=== PATIENT | male | born 2000 | race Two or more races ===

== ENCOUNTER 2024-04-23 12:47 | Emergency (ER) | payer MEDICAID, SELFPAY ==
[2024-04-23 12:48] VITALS: BMI 26.6
[2024-04-23 13:08] VITALS: BP 155/84; PULSE 67; RESP 18; TEMP 37.1; O2SAT 96
--- NOTE | 2024-04-23 13:37 | EDNOTE_ITS ---
<Statement entered by Sandra Broderick MD - 05/04/24 19:23> As co-signing physician, I was present and available for consult prn. I concur with the plan and care as documented by the midlevel provider. Upper Respiratory Inf. RME/HPI General Chief Complaint: Flu Like Symptoms Stated Complaint: COUGH/DIFF BREATHING/SORE THROAT x 2 WEEKS Time Seen by Provider: 04/23/24 13:12 Arrival date/time: 04/23/24 12:47 This is a 23-year-old male that comes in with complaints of cough, trouble br eathing, sore throat for the last 2 weeks. Patient denies any fever or chills. Patient states that he has been coughing a lot and sometimes it is hard to catch his breath. Patient denies any sick contacts at home. Patient denies any past medical history. Related Data Previous Rx's ?Medication ?Instructions ?Recorded oxycodone-acetaminophen 5 mg-325 1 tab PO Q6H PRN Pain Scale 04/10/22 mg tablet 4-10(Mod-Sev #10 tabs oxycodone-acetaminophen 5 mg-325 1 tab PO Q8H PRN pain #10 tabs 04/10/22 mg tablet (Percocet) ibuprofen 800 mg tablet 800 mg PO Q6H PRN pain #20 t abs 04/23/24 promethazine-DM 6.25 mg-15 mg/5 mL 5 ml PO Q6H PRN cou gh #120 mL 04/23/24 oral syrup Allergies Allergy/AdvReac Type Severity Reaction Status Date / Time No Known Allergies Allergy Verified 04/23/24 12:49 Review of Systems Review of Systems Systems Reviewed: All systems reviewed, normal except as documented Past Medical History Past Medical History Comments PMH COMMENT: Social History: Nonsmoker. Nondrinker. No substance use. No PMHx. No medications. No surgeries. ED Exam General General appearance: Present alert and in no apparent distress Head Head exam: Present atraumatic Eye Eye exam: Present normal appearance, PERRL and EOMI ENT ENT exam: Present normal exam, normal oropharynx and mucous membranes moist Neck Neck exam: Present normal inspection, full ROM and trachea midline Chest Chest inspection: Present normal inspection and symmetric chest wall rise Respiratory Respiratory exam: Present normal lung sounds bilaterally Cardiovascular Cardiovascular exam: Present regular rate, normal rhythm and normal heart sounds Abdominal Exam Abdominal exam: Present soft Extremities Exam Extremities exam: Present normal inspection and full ROM Back Exam Back exam: Present normal inspection and full ROM Neurological Exam Neurological exam: Present alert, oriented X3 and CN II-XII intact Psychiatric Psychiatric exam: Present normal affect and normal mood Skin Skin exam: Present warm, dry, intact and normal color Course Quality Measures none Orders Category Date Time Status Dexamethasone Inj [Decadron Inj] Med 04/23/24 13:37 Discontinued 10 mg PO X1 ONE Ibuprofen Tab [Motrin Tab] Med 04/23/24 13:37 Discontinued 800 mg PO X1 ONE Promethazine/Dextromethorph [Phenergan Dm Syrup] Med 04/23/24 13:37 Discontinued 5 ml PO X1 ONE Vital Signs Vital signs: Vital Signs Temperature 98.8 F 04/23/24 13:08 Pulse Rate 67 04/23/24 13:08 Respiratory Rate 18 04/23/24 13:08 Blood Pressure 155/84 H 04/23/24 13:08 Pulse Oximetry (%) 96 04/23/24 13:08 Oxygen Delivery Method Room Air 04/23/24 13:08 Upper Respiratory Infection MDM Narrative MDM Narrative:: This is a 23-year-old male that comes in with complaints of cough, trouble breathing, sore throat for the last 2 weeks. Patient denies any fever or chills. Patient states that he has been coughing a lot and sometimes it is hard to catch his breath. Patient denies any sick contacts at home. Patient denies any past medical history. Patient given ibuprofen, promethazine, and Decadron. Patient feels better. Patient encouraged to drink plenty of fluids and rest. Patient told the importance of follow up with primary provider and failure to do so can result in worsening in his condition. Patient verbalizes understanding. Patient data External records reviewed:: [facility] previous records Clinical information provided by:: patient Social determinants that could affect healthcare access:: none Patient has the following chronic illnesses:: none How is presenting disease/condition affected by chronic disease/condition?: no chronic disease Evaluation data The following diagnostics were reviewed and interpreted by me:: other (specify) (none ) Lab and/or radiology exams considered but not ordered:: none Interpretation Summary: see note Medications / Prescriptions Medications or Prescriptions considered but not ordered:: none Medication administrations:: Medication Administration History Discontinued Medications Dexamethasone Sodium Phosphate (Dexamethasone Sod Phos Inj 10 Mg/Ml Vial) 10 mg PO X1 ONE Stop: 04/23/24 13:38 Last Admin: 04/23/24 13:45 Dose: 10 mg Documented By: PATEL Ibuprofen (Ibuprofen Tab 400 Mg Tablet) 800 mg PO X1 ONE Stop: 04/23/24 13:38 Last Admin: 04/23/24 13:44 Dose: 800 mg Documented By: PATEL Promethazine HCl/Dextromethorphan (Promethazine/Dm Syrup 5 Ml Dose) 5 ml PO X1 ONE; Protocol Stop: 04/23/24 13:38 Last Admin: 04/23/24 13:44 Dose: 5 ml Documented By: PATEL see mar Consultations Consultation(s) initiated? (list below): No Diagnosis Upper Respiratory Differential Diagnosis: upper respiratory infection, otitis media, viral infection, bronchitis and influenza Most likely diagnosis given after review of the tests above:: uri Admission Indicated Admission indicated?: not indicated Admission Request Was there a request for admission?: No Disposition Plan Disposition Plan: Discharge Discharge Attestation Discharge Attestation: The patient and all family members were given an opportunity to ask questions and understood the discharge instructions. Discharge instructions specifically effects, indications for sooner follow up or return to the emergency department, and the expected course of current diagnosis. Patient condition: Stable Discharge Plan Plan Patient Disposition: HOME (Self Care) Patient condition on transfer: Stable Prescriptions/Referrals Prescriptions/Med Rec: New promethazine-DM 6.25-15 mg/5 mL syrup 5 ml PO Q6H PRN (Reason: cough) Qty: 120 0RF ibuprofen 800 mg tablet 800 mg PO Q6H PRN (Reason: pain) Qty: 20 0RF No Action oxycodone-acetaminophen 5-325 mg Tablet 1 tab PO Q6H MDD 6 tabs PRN (Reason: Pain Scale 4-10(Mod-Sev) Qty: 10 0RF oxycodone-acetaminophen [Percocet] 5-325 mg tablet 1 tab PO Q8H MDD 6 tabs PRN (Reason: pain) Qty: 10 0RF Problem List Clinical Impression: Upper respiratory infection, viral, Cough Patient/Caregiver Discharge Instructions Discharge Activity: activity as tolerated Education Materials: ED URI, Viral, No Abx (Adult) Additional Instructions: Follow-up with primary provider in 1 to 2 days. Come back to the emergency room if symptoms change or worsen peer Print Language: Swedish Stand Alone Forms: Comfort Award Info., Patient Portal Info Letter PA/[employer] Supervising Physician VICKY/[employer] Supervising Physician: [email or web address]
[2024-04-23] MEDS: PROMETHAZINE/DM SYRUP 5 ML DOSE PO (13:44)
[2024-04-23] MEDS: IBUPROFEN TAB 400 MG TABLET 800 MG PO (13:44)
[2024-04-23] MEDS: DEXAMETHASONE SOD PHOS INJ 10 MG/ML VIAL PO (13:45)
== END 2024-04-23 13:54 | disposition home or self-care (01) ==
LOC: SERX 13:59
PROVIDERS: Emergency Provider Emergency Medicine
DX: J06.9 Acute upper respiratory infection, unspecified (principal)
CPT/HCPCS: 99282; J1100; A9270